=== PATIENT | female | born 1985 | race Two or more races ===

== ENCOUNTER 2016-11-09 01:24 | Inpatient (IN) | payer MEDICAID ==
[~2016-11-09] VITALS: Ht 157.5 cm; Wt 80.7 kg
[~2016-11-09 01:24] MED LIST: PREN-96 PO
[2016-11-09] MEDS ORDERED: LACT. RINGERS/OXYTOCIN 20UNITS 1,000 ML IV SCH (02:07)
[2016-11-09] MEDS ORDERED: LACTATED RINGER'S 1,000 ML IV SCH ×2 (02:07→02:18)
[2016-11-09] MEDS ORDERED: METHYLERGONOVINE MALEATE 0.2 MG/ML AMP IM PRN (02:15)
[2016-11-09] MEDS ORDERED: LIDOCAINE 2%HCL (LOCAL ANESTH.) INJ 20ML MDV IJ PRN (02:15)
[2016-11-09] MEDS ORDERED: NALBUPHINE HCL 10 MG/1ml INJECTION IV PRN (02:15)
[2016-11-09] MEDS ORDERED: PROMETHAZINE HCL 25 MG/ML 1ML IV PRN (02:15)
[2016-11-09] MEDS ORDERED: WITCH HAZEL-GLYCERIN PAD TOP PRN (02:15)
[2016-11-09] MEDS ORDERED: DERMOPLAST 60ML BOTTLE TOP PRN (02:15)
[2016-11-09] MEDS ORDERED: PHISODERM TOP SOLN 240ML BTL TOP PRN (02:15)
[2016-11-09 02:24] LABS: Urine Bilirubin Negative (Negative); Urine Blood TRACE /uL (Negative); Urine Color Yellow (Yellow); Urine Glucose Normal (Normal); Urine Ketone Negative (Negative); Urine Nitrite Negative (Negative); Urine RBC 2 /hpf (0 - 4); Urine Squamous Epithelial Cell FEW /hpf (<5); Urine Urobilinogen Normal (Negative); Urine pH 6.5 (5.0-8.0)
[2016-11-09 02:57] LABS: Basophils # (auto) 0.1 uL; Basophils % (auto) 0.6 % (0.0-2.0); DEFINITIVE VIEW TRANSMISSION; Eosinophils # (auto) 0.1 uL; Hematocrit 31.6 % (36.0-46.0); Hemoglobin 10.1 g/dL (12.2-16.2); Lymphocytes # (auto) 2.3 uL; Lymphocytes % (auto) 22.1 % (10.0-50.0); Mean Corpuscular Hemoglobin 23.6 pg (28.0-32.0); Mean Corpuscular Hgb Conc. 31.9 g/dL (32.0-36.0); Mean Corpuscular Volume 74.1 fL (80.0-100.0); Mean Platelet Volume 8.8 fL (7.4-10.4); Monocytes # (auto) 0.9 uL; Monocytes % (auto) 8.1 % (0.0-12.0); Neutrophils # (auto) 7.1 uL; Neutrophils % (auto) 68.2 % (37.0-80.0); Platelet Count (auto) 308 10^3/uL (140-450); Red Cell Distribution Width 17.4 % (11.6-16.0); White Blood Cell 10.4 10^3/uL (4.4-10.8)
[2016-11-09 03:14] LABS: INR 0.95 (0.9-1.15); Partial Thromboplastin Time 29.9 sec (22.64-33.71); Prothrombin Time 9.8 sec (9.37-12.3)
[2016-11-09 03:18] LABS: Albumin 2.4 g/dL (3.4-5.0); BUN/Creatinine Ratio 13.7; Calcium 8.2 mg/dL (8.5-10.1); Potassium 3.7 mmol/L (3.5-5.1)
[2016-11-09 03:27] LABS: Bilirubin, Total 0.1 mg/dL (0.2-1.0); Total Protein 6.7 g/dL (6.4-8.2)
[2016-11-09 04:25] LABS: Fibrinogen 537.8 mg/dL (177-375)
[2016-11-09] MEDS ORDERED: LACT. RINGERS/OXYTOCIN 20UNITS 500 ML IV ONE (04:58)
[2016-11-09] MEDS ORDERED: IBUPROFEN 600 MG TAB PO ONE (05:00)
[2016-11-09 06:51] VITALS: BP 102/57
[2016-11-09 11:36] VITALS: BP 102/60
[2016-11-09] MEDS: IBUPROFEN 600 MG TAB PO PRN ×2 (11:47→15:40)
[2016-11-09 15:21] VITALS: BP 119/61
[2016-11-09 18:39] VITALS: BP 111/56
[2016-11-09 23:36] VITALS: BP 112/58
[2016-11-10 03:30] VITALS: BP 109/61
[2016-11-10] MEDS: IBUPROFEN 600 MG TAB PO PRN ×2 (03:44→08:00)
[2016-11-10 08:00] VITALS: BP 105/63
[2016-11-10] MEDS ORDERED: TETANUS-DIPTH-ACEL PERTUSSIS 0.5ML SYRG IM ONE (09:00)
[2016-11-10] MEDS ORDERED: INFLUENZA QUAD 2016-2017 0.5 ML SYRG IM ONE (09:15)
== END 2016-11-10 11:00 | disposition home or self-care (01) | DRG 560 ==
LOC: OBSVTOIN 01:24 → LDRP 01:24
PROVIDERS: ADMIT Specialist; ATTEND Specialist
PROC: 10E0XZZ Delivery of Products of Conception, External Approach (ICD-10-PCS; principal; 2016-11-09)
PROC: 0HQ9XZZ Repair Perineum Skin, External Approach (ICD-10-PCS; 2016-11-09)
PROC: 0UQMXZZ Repair Vulva, External Approach (ICD-10-PCS; 2016-11-09)
DX: O62.3 Precipitate labor (principal); O77.0 Labor and delivery complicated by meconium in amniotic fluid; O71.82 Other specified trauma to perineum and vulva; O70.0 First degree perineal laceration during delivery; Z3A.39 39 weeks gestation of pregnancy; Z37.0 Single live birth
CPT/HCPCS: 36415; 59025; 59409; 80053; 81001; 81002; 85025; 85384; 85610; 85730; 86592; 86850; 86900; 86901; 86920; 90715; 96365; 96366; 96372; G0378; J2590